=== PATIENT | male | born 1975 | race Caucasian/White ===

== ENCOUNTER 2019-08-25 06:06 | Emergency (ER) | payer OTHER ==
[2019-08-25 06:18] VITALS: RESP 18
[2019-08-25] MEDS ORDERED: predniSONE 50 MG TAB PO STA (06:36)
[2019-08-25] MEDS ORDERED: ORPHENADRINE 30 MG/ML 2 ML VIAL IM STA (06:36)
[2019-08-25] MEDS ORDERED: KETOROLAC 30 MG/ML 1 ML VIAL IM STA (06:36)
--- NOTE | 2019-08-25 06:45 | ED ---
General Adult HPI - General Chief complaint: Back Pain/Injury Stated complaint: Right hip pain Time Seen by Provider: 08/25/19 06:24 Source: patient, RN notes reviewed Mode of arrival: ambulatory Limitations: no limitations - History of Present Illness Initial comments: 43-year-old male with a past medical history of diabetes mellitus, hypertension presents to the emergency department for right act and leg pain. Patient reports that on Friday he was washing his truck. After he started to feel some back and leg pain. States it starts in his right lower back and radiates down to his right knee. Patient states movement makes this worse. States that today he had have his put his shoes on because bending over worsen the pain. Patient denies any weakness of the lower extremities. Denies any numbness or tingling in the saddle region. Denies bladder or bowel changes. Denies fevers or history of IV drug abuse. Patient states right now it feels better to be up and walking.Patient has no other complaints at this time including shortness of breath, chest pain, abdominal pain, nausea or vomiting, headache, or visual changes. - Related Data Home Medications Medication Instructions Recorded Confirmed Lisinopril [Prinivil] 10 mg PO DAILY 11/28/15 09/24/16 Atorvastatin [Lipitor] 10 mg PO DAILY 09/24/16 09/24/16 glyBURIDE [Diabeta] 5 mg PO AC-BID 09/24/16 09/24/16 sitaGLIPtin [Januvia] 25 mg PO DAILY 09/24/16 09/24/16 Previous Rx's Medication Instructions Recorded Cyclobenzaprine [Flexeril] 10 mg PO TID #9 tab 08/25/19 predniSONE 50 mg PO DAILY #4 tablet 08/25/19 Allergies Allergy/AdvReac Type Severity Reaction Status Date / Time No Known Allergies Allergy Verified 08/25/19 06:18 Review of Systems ROS Statement: Those systems with pertinent positive or pertinent negative responses have been documented in the HPI. ROS Other: All systems not noted in ROS Statement are negative. Past Medical History Past Medical History: Diabetes Mellitus, Hypertension History of Any Multi-Drug Resistant Organisms: None Reported Past Surgical History: No Surgical Hx Reported Past Psychological History: No Psychological Hx Reported Smoking Status: Former smoker Past Alcohol Use History: None Reported Past Drug Use History: None Reported General Exam Limitations: no limitations General appearance: alert, in no apparent distress Head exam: Present: atraumatic, normocephalic, normal inspection Eye exam: Present: normal appearance, PERRL, EOMI. Absent: scleral icterus, conjunctival injection, periorbital swelling ENT exam: Present: normal exam, mucous membranes moist Neck exam: Present: normal inspection, full ROM. Absent: tenderness, meningismus, lymphadenopathy Respiratory exam: Present: normal lung sounds bilaterally. Absent: respiratory distress, wheezes, rales, rhonchi, stridor Cardiovascular Exam: Present: regular rate, normal rhythm, normal heart sounds. Absent: systolic murmur, diastolic murmur, rubs, gallop, clicks GI/Abdominal exam: Present: soft, normal bowel sounds. Absent: distended, tenderness, guarding, rebound, rigid Extremities exam: Present: normal capillary refill (Capillary refill less than 2 seconds in bilateral lower extremities, DP pulses 2+ in the right lower extremity.), other (+ Straight leg raise test). Absent: joint swelling, calf tenderness Back exam: Absent: full ROM (flexion to about 45 degrees) Neurological exam: Present: alert Course Vital Signs 08/25/19 06:14 Temperature 98.0 F Pulse Rate 95 Respiratory 18 Rate Blood Pressure 160/103 O2 Sat by Pulse 98 Oximetry Disposition Clinical Impression: Mechanical back pain, Lumbar radicular pain Disposition: HOME SELF-CARE Condition: Good Instructions (If sedation given, give patient instructions): Sciatica (ED) Additional Instructions: Please take steroid as directed. However make sure to watch your glucose closely while taking the steroid as it may raise your sugar levels. Take Tylenol or Tylenol 3 for pain and muscle relaxer as needed. Do not drive while taking muscle relaxer and tylenol 3. Do not take Motrin while taking the steroid. Follow-up with orthopedics in one to 2 days. Return to the emergency room for any worsening symptoms such as worsening pain, bladder or bowel changes, numbness or tingling in the saddle region, fevers, or weakness of the lower extremities Prescriptions: Cyclobenzaprine [Flexeril] 10 mg PO TID #9 tab predniSONE 50 mg PO DAILY #4 tablet Is patient prescribed a controlled substance at d/c from ED?: No Referrals: Santiago Richardson MD [Primary Care Provider] - 1-2 days Kole Hough MD [STAFF PHYSICIAN] - 1-2 days Time of Disposition: 07:20
[2019-08-25] MEDS ORDERED: ACET/COD 300 MG/30 MG STARTER PACK 6 TAB BTL PO STA (07:19)
[2019-08-25 07:30] VITALS: BP 123/82; PULSE 96; TEMP 98.1
== END 2019-08-25 07:38 | disposition home or self-care (01) ==
LOC: EC 06:06
DX: M54.16 Radiculopathy, lumbar region (principal); I10 Essential (primary) hypertension; E11.9 Type 2 diabetes mellitus without complications; Z79.899 Other long term (current) drug therapy; Z79.84 Long term (current) use of oral hypoglycemic drugs; Z87.891 Personal history of nicotine dependence
CPT/HCPCS: 99283; 96372 ×2; J2360; J1885; J7512

== ENCOUNTER 2020-12-29 05:28 | Emergency (ER) | payer OTHER ==
[2020-12-29 05:34] VITALS: BP 155/82; PULSE 74; RESP 20; TEMP 98
--- NOTE | 2020-12-29 06:37 | ED ---
URI HPI - General Chief Complaint: Upper Respiratory Infection Stated Complaint: Needs Covid Test Time Seen by Provider: 12/29/20 05:46 Source: patient Mode of arrival: ambulatory Limitations: no limitations - History of Present Illness MD Complaint: cough, sore throat, nasal congestion Onset/Timin -: days(s) Severity: mild Consistency: constant Improves With: nothing Worsens With: nothing Context: sick contacts Associated Symptoms: denies other symptoms - Related Data Home Medications Medication Instructions Recorded Confirmed Lisinopril [Prinivil] 10 mg PO DAILY 11/28/15 09/24/16 Atorvastatin [Lipitor] 10 mg PO DAILY 09/24/16 09/24/16 glyBURIDE [Diabeta] 5 mg PO AC-BID 09/24/16 09/24/16 sitaGLIPtin [Januvia] 25 mg PO DAILY 09/24/16 09/24/16 Previous Rx's Medication Instructions Recorded Cyclobenzaprine [Flexeril] 10 mg PO TID #9 tab 08/25/19 predniSONE 50 mg PO DAILY #4 tablet 08/25/19 Allergies Allergy/AdvReac Type Severity Reaction Status Date / Time No Known Allergies Allergy Verified 12/29/20 05:34 Review of Systems ROS Statement: Those systems with pertinent positive or pertinent negative responses have been documented in the HPI. ROS Other: All systems not noted in ROS Statement are negative. Constitutional: Denies: fever, chills ENT: Reports: congestion. Denies: ear pain, throat pain, hearing loss Respiratory: Reports: cough. Denies: dyspnea, wheezes Gastrointestinal: Denies: abdominal pain, vomiting, diarrhea Skin: Denies: rash Neurological: Reports: headache. Denies: weakness, numbness, paresthesias Past Medical History Past Medical History: Diabetes Mellitus, Hypertension History of Any Multi-Drug Resistant Organisms: None Reported Past Surgical History: No Surgical Hx Reported Past Psychological History: No Psychological Hx Reported Smoking Status: Former smoker Past Alcohol Use History: None Reported Past Drug Use History: None Reported General Exam Limitations: no limitations General appearance: alert, in no apparent distress Head exam: Present: atraumatic, normocephalic Eye exam: Present: normal appearance. Absent: scleral icterus, conjunctival injection ENT exam: Present: normal oropharynx Neck exam: Present: normal inspection, full ROM. Absent: meningismus Respiratory exam: Present: normal lung sounds bilaterally. Absent: respiratory distress, wheezes, rales, rhonchi, stridor Cardiovascular Exam: Present: regular rate, normal rhythm, normal heart sounds. Absent: systolic murmur, diastolic murmur, rubs, gallop GI/Abdominal exam: Present: soft. Absent: tenderness Extremities exam: Present: normal inspection, normal capillary refill Neurological exam: Present: alert Skin exam: Present: warm, dry, intact, normal color. Absent: rash Course Vital Signs 12/29/20 05:31 Temperature 98.0 F Pulse Rate 74 Respiratory 20 Rate Blood Pressure 155/82 O2 Sat by Pulse 99 Oximetry Medical Decision Making - Lab Data Lab Results 12/29/20 Range/Units 05:53 Coronavirus (PCR) Detected A (Not Detectd) Disposition Clinical Impression: COVID-19 Disposition: HOME SELF-CARE Condition: Good Instructions (If sedation given, give patient instructions): Coronavirus Disease 2019 (COVID-19) Is patient prescribed a controlled substance at d/c from ED?: No Referrals: Byron Augustin Jr, [Primary Care Provider] - 1-2 days
== END 2020-12-29 06:48 | disposition home or self-care (01) ==
LOC: EC 05:28
DX: U07.1 COVID-19 (principal); I10 Essential (primary) hypertension; E11.9 Type 2 diabetes mellitus without complications; Z87.891 Personal history of nicotine dependence
CPT/HCPCS: 87635; 99283

== ENCOUNTER 2023-07-21 15:38 | Emergency (ER) | payer OTHER ==
[2023-07-21 16:24] VITALS: RESP 18
[2023-07-21] MEDS: ACETAMINOPHEN TAB 500 MG TAB PO STA (17:04)
[2023-07-21] MEDS: diazePAM 2 MG TAB PO STA (17:04)
[2023-07-21] MEDS: LIDOCAINE 4% PATCH TOPICAL STA (17:05)
--- NOTE | 2023-07-21 17:17 | ED ---
General Adult HPI - General Chief complaint: Back Pain/Injury Stated complaint: Back Pain Time Seen by Provider: 07/21/23 16:50 Source: patient, RN notes reviewed, old records reviewed Mode of arrival: ambulatory - History of Present Illness Initial comments: Is a 47-year-old male who presents emergency department complaining of back pain. Has been ongoing for the last 2 and half weeks. 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 Thinks this may is what may have triggered it. States it is mostly along the paraspinal muscles of the mid back rating down his back. Worse with certain movements. Worse at work. Was supposed to get outpatient x-rays which she has delayed. Ran out of muscle relaxers which were provided by his PCP. Presents for further evaluation at this time. Denies any other obvious injuries. Denies any urinary or bowel incontinence or retention. Denies any lower extremity paralysis or saddle paresthesias. No other acute com plaints at this time. No chest pain, abdominal pain, nausea, vomiting, shortness of breath. Presents for further evaluation at this time. Is requesting imaging of his back. - Related Data Home Medications Medication Instructions Recorded Confirmed Atorvastatin [Lipitor] 40 mg PO DAILY 05/16/21 05/16/21 Insulin Glargine,Hum.rec.anlog 30 unit SQ HS 05/16/21 05/16/21 [Lantus Solostar Pen] Insulin Glargine,Hum.rec.anlog 40 unit SQ DAILY 05/16/21 05/16/21 [Lantus Solostar Pen] lisinopriL [Zestril] 5 mg PO DAILY 05/16/21 05/16/21 sitaGLIPtin [Januvia] 100 mg PO DAILY 05/16/21 05/16/21 Previous Rx's Medication Instructions Recorded Oseltamivir [Tamiflu] 75 mg PO Q12HR #10 cap 05/16/21 Hydrocortisone [Anusol-Hc] 1 applic RECTAL BID #30 gm 11/09/22 Lidocaine 5% Patch [Lidoderm 5% 1 patch TOPICAL DAILY PRN 14 Days 07/21/23 Patch] #14 patch methocarbamoL [Robaxin-750] 1,500 mg PO TID PRN 7 Days #42 tab 07/21/23 Allergies Allergy/AdvReac Type Severity Reaction Status Date / Time No Known Allergies Allergy Verified 07/21/23 16:24 Review of Systems ROS Statement: Those systems with pertinent positive or pertinent negative responses have been documented in the HPI. Review of Systems: CONST: Denies fever EYES: Denies blurry vision ENT: Denies nasal congestion C/V: Denies Chest pain RESP: Denies shortness of breath GI: Denies abdominal pain : Denies dysuria SKIN: Denies rash. MSK: Endorses back pain NEURO: Denies headache ROS Other: All systems not noted in ROS Statement are negative. Past Medical History Past Medical History: Diabetes Mellitus, Hyperlipidemia, Hypertension History of Any Multi-Drug Resistant Organisms: None Reported Past Surgical History: No Surgical Hx Reported Past Psychological History: No Psychological Hx Reported Smoking Status: Former smoker Past Alcohol Use History: None Reported Past Drug Use History: None Reported General Exam - General Exam Comments Initial Comments: General: Appears in mild distress secondary to back pain. HEAD: Normal with no signs of head trauma. EYES: PERRLA, EOMI, conjunctiva normal, no discharge. ENT: Hearing grossly intact, normal oropharynx. RESPIRATORY: Clear breath sounds bilaterally. No wheezes, rales, or rhonchi. C/V: Regular rate and rhythm. S1 and S2 auscultated, peripheral pulses 2+ and intact throughout ABD: Abd is soft, nontender, nondistended EXT: Normal range of motion, no obvious deformity. Paraspinal muscle tenderness to palpation along the mid thoracic spine extending down through the upper lumba r spine. No significant mid thoracic or lumbar spine tenderness to palpation. Pain is worse with movements. No step-offs or deformity of the spine palpated. No cervical spine tenderness to palpation. SKIN: No rashes or lesions observed on exposed skin. NEURO: Alert and orient x 4. No obvious focal deficits.Ambulates without difficulty. Course Vital Signs 07/21/23 07/21/23 16:20 18:20 Temperature 98.3 F 98.1 F Pulse Rate 94 86 Respiratory 18 18 Rate Blood Pressure 129/77 136/76 O2 Sat by Pulse 95 97 Oximetry Medical Decision Making - Medical Decision Making Was pt. sent in by a medical professional or institution (, PA, SUPERVISOR [employer]LE[employer], urgent care, hospital, or fci...) When possible be specific @ -No Did you speak to anyone other than the patient for history (EMS, parent, family, police, friend...)? What history was obtained from this source @ -No Did you review nursing and triage notes (agree or disagree)? Why? @ -I reviewed and agree with nursing and triage notes Were old charts reviewed (outside hosp., previous admission, EMS record, old EKG, old radiological studies, urgent care reports/EKG's, fci records)? Report findings @ -No old charts were reviewed Differential Diagnosis (chest pain, altered mental status, abdominal pain women, abdominal pain men, vaginal bleeding, weakness, fever, dyspnea, syncope, headache, dizziness, GI bleed, back pain, seizure, CVA, palpatations, mental health, musculoskeletal)? @ -Differential Back Pain: Strain, zoster, cauda equina syndrome, epidural abscess, vertebral osteomyelitis, discitis, fracture, subluxation, disc herniation, DJD, spinal stenosis, dissection, AAA, pancreatitis, peptic ulcer disease, pyelonephritis, kidney stone, this is not meant to be an all-inclusive list. EKG interpreted by me (3pts min.). @ -None done X-rays interpreted by me (1pt min.). @ -None done CT interpreted by me (1pt min.). @ -CT thoracic lumbar spine negative for any obvious traumatic injury. Patient does have some retrolisthesis of L3 on L4 as well as some moderate spinal stenosis at L4-L5. No findings at the thoracic spine where patient is having his pain. U/S interpreted by me (1pt. min.). @ -None done What testing was considered but not performed or refused? (CT, X-rays, U/S, labs)? Why? @ -None What meds were considered but not given or refused? Why? @ -None Did you discuss the management of the patient with other professionals (professionals i.e. , PA, SUPERVISOR [employer], lab, RT, psych nurse, sr. social media & mobile manager, catalogue compiler, teacher, medical officer, employment case manager)? Give summary @ -No Was smoking cessation discussed for >3mins.? @ -No Was critical care preformed (if so, how long)? @ -No Were there social determinants of health that impacted care today? How? (Homelessness, low income, unemployed, alcoholism, drug addiction, transportation, low edu. Level, literacy, decrease access to med. care, [facility], rehab)? @ -No Was there de-escalation of care discussed even if they declined (Discuss DNR or withdrawal of care, Hospice)? DNR status @ -No What co-morbidities impacted this encounter? (DM, HTN, Smoking, COPD, CAD, Cancer, CVA, ARF, Chemo, Hep., AIDS, mental health diagnosis, sleep apnea, morbid obesity)? @ -None Was patient admitted / discharged? Hospital course, mention meds given and route, prescriptions, significant lab abnormalities, going to OR and other pertinent info. 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 Seems to be in the thoracic and lumbar spine. We will obtain CT imaging of the thoracic and lumbar spine. Vital signs within acceptable limits. No concern for cauda equina syndrome at this time as patient has no red flag symptoms. Patient be symptomatically treated with oral Valium, lidocaine patch, as well as Tylenol. Patient was in agreement this plan. Vital signs within acceptable limits. Patient's imaging unremarkable. Patient has some lumbar spine findings but no pain at that site. On reevaluation, patient is moving more easily and is feeling improved. I discussed this findings. Likely has a muscle strain in his back. Recommended follow-up with his PCP and possibly orthopedics if symptoms persist. He will be given a work note. He was in agreement this plan. I will provide the patient with a prescription for lidocaine patch, Robaxin. I instructed the patient to follow up with their PCP in the next 1-3 days.. I explained that the patient should return to the emergency department if they experience any worsening symptoms. Strict return precautions were discussed with the patient. The patient expressed understanding of these instructions. I answered all questions that the patient had. The patient was discharged home in good condition with their prescriptions and follow up information. Undiagnosed new problem with uncertain prognosis? @ -No Drug Therapy requiring intensive monitoring for toxicity (Heparin, Nitro, Insulin, Cardizem)? @ -No Were any procedures done? @ -No Diagnosis/symptom? @ -Back muscle strain Acute, or Chronic, or Acute on Chronic? @ -Acute Uncomplicated (without systemic symptoms) or Complicated (systemic symptoms)? @ -Uncomplicated Side effects of treatment? @ -None Exacerbation, Progression, or Severe Exacerbation] @ -No Poses a threat to life or bodily function? @ -Unlikely Disposition Clinical Impression: Back strain Disposition: HOME SELF-CARE Condition: Good Instructions (If sedation given, give patient instructions): Acute Low Back Pain (ED) Prescriptions: Lidocaine 5% Patch [Lidoderm 5% Patch] 1 patch TOPICAL DAILY PRN 14 Days #14 patch PRN Reason: Pain methocarbamoL [Robaxin-750] 1,500 mg PO TID PRN 7 Days #42 tab PRN Reason: Pain Is patient prescribed a controlled substance at d/c from ED?: No Referrals: Santiago Richardson MD [Primary Care Provider] - 1-2 days Ann Perez DO [Doctor of Osteopathic Medicine] - 1-2 days Time of Disposition: 18:00
--- NOTE | 2023-07-21 17:50 | CT ---
EXAMINATION TYPE: CT thor lumbar spine wo con DATE OF EXAM: 07/21/2023 COMPARISON: None HISTORY: back pain xfew weeks. no known injury CT DLP: 2432.8 mGycm Automated exposure control for dose reduction was used. FINDINGS: The thoracic and lumbar vertebral segments are normal in height and there is no fracture. There is a slight retrolisthesis of L3 on L4. There is mild spondylosis in the lower thoracic spine and throughout the lumbar spine but the disc sp aces are well preserved. The facet joints are intact. There is no bony encroachment of the thoracic or spinal canal. There is mild to moderate facet arthropathy at the at the L2-3, L4-5 and L5-S1 levels, right greater than left. Visualized sacrum and SI joints are normal. Secondary to circumferential disc bulge and facet hypertrophy, there is moderate to severe spinal keron nosis at the L4-5 level. IMPRESSION: 1. No thoracic or lumbar spine fracture. 2. Slight retrolisthesis of L3 on L4. 3. Minimal degenerative disease of the lower thoracic spine through the lumbar spine. 4. probable moderate to severe spinal stenosis at the L4-5 level. IMPRESSION:
[2023-07-21] MEDS: ACET/COD 300 MG/30 MG STARTER PACK 6 TAB BTL PO STA (18:19)
[2023-07-21 18:22] VITALS: BP 136/76; PULSE 86; TEMP 98.1
== END 2023-07-21 18:20 | disposition home or self-care (01) ==
LOC: EC 15:38
DX: S39.012A Strain of muscle, fascia and tendon of lower back, initial encounter (principal); Z87.891 Personal history of nicotine dependence; X58.XXXA Exposure to other specified factors, initial encounter
CPT/HCPCS: 72128; 72131; 99283

== ENCOUNTER 2023-11-24 07:03 | Emergency (ER) | payer OTHER ==
[2023-11-24 07:10] VITALS: BP 158/93; PULSE 99; RESP 18; TEMP 97.4
[2023-11-24] MEDS: KETOROLAC 15 MG/ML 1 ML VIAL IM STA (07:28)
--- NOTE | 2023-11-24 07:30 | ED ---
General Adult HPI - General Chief complaint: Fall Stated complaint: Fall- back pain Time Seen by Provider: 11/24/23 07:07 Source: patient, RN notes reviewed, old records reviewed Mode of arrival: ambulatory Limitations: no limitations - History of Present Illness Initial comments: 48-year-old male presents for evaluation of low back pain. Patient was on his way to work, slipped on the wet front porch steps landing on his lumbar spine. Patient has pain in the low back with some radiation to the left buttock. Patient came through ambulatory triage. He states he is able to walk with minor pain. Patient was concerned about standing all day at work. No head or neck injury. No extremity injury. - Related Data Home Medications Medication Instructions Recorded Confirmed Atorvastatin [Lipitor] 40 mg PO DAILY 05/16/21 05/16/21 Insulin Glargine,Hum.rec.anlog 30 unit SQ HS 05/16/21 05/16/21 [Lantus Solostar Pen] Insulin Glargine,Hum.rec.anlog 40 unit SQ DAILY 05/16/21 05/16/21 [Lantus Solostar Pen] lisinopriL [Zestril] 5 mg PO DAILY 05/16/21 05/16/21 sitaGLIPtin [Januvia] 100 mg PO DAILY 05/16/21 05/16/21 Previous Rx's Medication Instructions Recorded Oseltamivir [Tamiflu] 75 mg PO Q12HR #10 cap 05/16/21 Hydrocortisone [Anusol-Hc] 1 applic RECTAL BID #30 gm 11/09/22 Lidocaine 5% Patch [Lidoderm 5% 1 patch TOPICAL DAILY PRN 14 Days 07/21/23 Patch] #14 patch methocarbamoL [Robaxin-750] 1,500 mg PO TID PRN 7 Days #42 tab 07/21/23 Ibuprofen [Motrin] 600 mg PO Q8HR PRN #24 tab 11/24/23 Allergies Allergy/AdvReac Type Severity Reaction Status Date / Time No Known Allergies Allergy Verified 11/24/23 07:04 Review of Systems ROS Statement: Those systems with pertinent positive or pertinent negative responses have been documented in the HPI. ROS Other: All systems not noted in ROS Statement are negative. Past Medical History Past Medical History: Diabetes Mellitus, Hyperlipidemia, Hypertension History of Any Multi-Drug Resistant Organisms: None Reported Past Surgical History: No Surgical Hx Reported Past Psychological History: Anxiety, Depression Smoking Status: Current every day smoker Past Alcohol Use History: None Reported Past Drug Use History: Marijuana General Exam Limitations: no limitations General appearance: alert, in no apparent distress Head exam: Present: atraumatic, normocephalic Eye exam: Present: normal appearance, PERRL, EOMI ENT exam: Present: normal exam Neck exam: Present: normal inspection Respiratory exam: Present: normal lung sounds bilaterally. Absent: respiratory distress, wheezes Cardiovascular Exam: Present: regular rate, normal rhythm GI/Abdominal exam: Present: soft. Absent: distended, tenderness, guarding Extremities exam: Present: normal inspection Back exam: Present: paraspinal tenderness. Absent: vertebral tenderness Neurological exam: Present: alert, oriented X3, CN II-XII intact, normal gait, other (Strength 5 out of 5 in bilateral lower extremities). Absent: motor sensory deficit Psychiatric exam: Present: normal affect, normal mood Skin exam: Present: warm, dry, intact Course Vital Signs 11/24/23 07:05 Temperature 97.4 F L Pulse Rate 99 Respiratory 18 Rate Blood Pressure 158/93 O2 Sat by Pulse 98 Oximetry Medical Decision Making - Medical Decision Making Was pt. sent in by a medical professional or institution (, PA, PREPLEATER, urgent care, hospital, or fdc...) When possible be specific @ -No Did you speak to anyone other than the patient for history (EMS, parent, family, police, friend...)? What history was obtained from this source @ -No Did you review nursing and triage notes (agree or disagree)? Why? @ -I reviewed and agree with nursing and triage notes Were old charts reviewed (outside hosp., previous admission, EMS record, old EKG, old radiological studies, urgent care reports/EKG's, fdc records)? Report findings @ -No old charts were reviewed Differential Musculoskeletal Muscular strain, contusion, ligament sprain, fracture, arthritis, septic arthritis, bursitis, cellulitis, muscle spasm, nerve compression, DVT, arterial occlusion, herpes zoster, electrolyte abnormality, tumor.... This is not meant to be in all inclusive list EKG interpreted by me (3pts min.). @ -As above X-rays interpreted by me (1pt min.). @X-ray of the lumbar sacral spine is negative for displaced fracture, no acute findings. CT interpreted by me (1pt min.). @ -None done U/S interpreted by me (1pt. min.). @ -None done What testing was considered but not performed or refused? (CT, X-rays, U/S, labs)? Why? @ -None What meds were considered but not given or refused? Why? @ -None Did you discuss the management of the patient with other professionals (pr ofessionals i.e. , PA, PREPLEATER, lab, RT, psych nurse, oncology social worker, taker off, teacher, global chief creative officer, immigration case worker)? Give summary @ -No Was smoking cessation discussed for >3mins.? @ -No Was critical care preformed (if so, how long)? @ -No Were there social determinants of health that impacted care today? How? (Homelessness, low income, unemployed, alcoholism, drug addiction, transportation, low edu. Level, literacy, decrease access to med. care, [facility], rehab)? @ -No Was there de-escalation of care discussed even if they declined (Discuss DNR or withdrawal of care, Hospice)? DNR status @ -No What co-morbidities impacted this encounter? (DM, HTN, Smoking, COPD, CAD, Cancer, CVA, ARF, Chemo, Hep., AIDS, mental health diagnosis, sleep apnea, morbid obesity)? @Diabetes Was patient admitted / discharged? Hospital course, mention meds given and route, prescriptions, significant lab abnormalities, going to OR and other pertinent info. @ -48-year-old male presenting with slip and fall, low back pain. No alarming features on history or physical exam. X-rays negative for fracture. Patient will take Tylenol and Motrin. He will follow-up with his primary care provider. Undiagnosed new problem with uncertain prognosis? @ -No Drug Therapy requiring intensive monitoring for toxicity (Heparin, Nitro, Insulin, Cardizem)? @ -No Were any procedures done? @ -No Diagnosis/symptom? @Lumbar contusion Acute, or Chronic, or Acute on Chronic? @ -[Acute Uncomplicated (without systemic symptoms) or Complicated (systemic symptoms)? @ -Default Side effects of treatment? @ -No Exacerbation, Progression, or Severe Exacerbation? @ -No Poses a threat to life or bodily function? How? (Chest pain, [place], MA, pneumonia, PE, COPD, DKA, ARF, appy, cholecystitis, CVA, Diverticulitis, Homicidal, Christopher icidal, threat to staff... and all critical care pts) @ -No Disposition Clinical Impression: Fall, Lumbar contusion Disposition: HOME SELF-CARE Condition: Good Instructions (If sedation given, give patient instructions): Low Back Strain (ED) Prescriptions: Ibuprofen [Motrin] 600 mg PO Q8HR PRN #24 tab PRN Reason: Pain Is patient prescribed a controlled substance at d/c from ED?: No Referrals: Santiago Richardson MD [Primary Care Provider] - 1-2 days Time of Disposition: 07:50
--- NOTE | 2023-11-24 08:02 | XR ---
EXAM TYPE: LUMBAR SPINE X RAY SERIES COMPARISON: NONE HISTORY: Pain TECHNIQUE: 4 views are submitted. FINDINGS: Straightening of the lumbar spine with retrolisthesis L2-3, L3-4 and L4-5. Facet arthropathy L4-5 and L5-S1. Mild degenerative disc disease thoracolumbar spine and L5-S1. There appears to be no signific ant compression deformity. IMPRESSION: 1. Mild degenerative disc disease. [facility], , 11/24/2023 7:59 AM
== END 2023-11-24 08:15 | disposition home or self-care (01) ==
LOC: EC 07:03
CPT/HCPCS: 72110; 96372; 99283